=== PATIENT | female | born 1955 | race Caucasian/White ===

== ENCOUNTER → 2020-07-05 | Outpatient (CLI) | payer OTHER ==
--- NOTE | 2020-07-06 14:49 | CT ---
EXAM DESCRIPTION: Chest w/o Contrast CLINICAL HISTORY: STANDARD CHEST X-RAY ABNORMAL COMPARISON: No comparison studies available at time of dictation. TECHNIQUE: Non contrast multidetector CT imaging of the chest. Multiplanar reconstructions were provided. This exam was performed according to our departmental dose-optimization program which includes automated exposure control, adjustment of the mA and/or kV according to patient size and/or use of iterative reconstruction technique. FINDINGS: Remote left-sided pneumonectomy with left-sided mediastinal shift and compensatory hypertrophy of the right lung. Usual scar tissue seen along the residual left pleura small focus of scar right middle lobe adjacent to the fissure. No acute consolidation. Bronchial filling defects within the medial basilar segment of the right lower lobe likely reflecting areas of bronchial secretion. Heart size is normal. Dense coronary vascular calcifications are present. Thoracic aortic ectasia and calcific atherosclerotic disease. Bilateral breast implants with usual dystrophic capsular calcifications. Visualized structures of the upper abdomen are present unremarkable. No acute bony pathology. No aggressive lytic or blastic osseous lesions. IMPRESSION: Normal findings associated with left-sided pneumonectomy. Mild nonspecific bronchial secretions mediobasilar segment right lower lobe. Correlate for clinical symptoms of bronchitis. No acute consolidation. Electronically signed by: Jonh Bedoya MD 07/06/2020 2:47 PM CDT
== END ==
LOC: CT 10:49
PROVIDERS: ATTEND Emergency Medicine
DX: R93.89 Abnormal findings on diagnostic imaging of other specified body structures (principal); R91.8 Other nonspecific abnormal finding of lung field